=== PATIENT | male | born 1945 | race Caucasian/White ===

== ENCOUNTER 2017-11-21 17:42 | Emergency (ER) | payer MEDICARE, OTHER ==
[2017-11-21] MEDS ORDERED: Albuterol/Ipratropium 3.0-0.5 MG/3 ML Neb Soln NEB ONE (17:50)
[2017-11-21] MEDS ORDERED: cefTRIAXone 2 GM in Sodium Chloride 0.9% 100 ML IV ONE (17:50)
[2017-11-21] MEDS ORDERED: Ondansetron 4 MG/2 ML SDV IVPUSH ONE (17:55)
[2017-11-21] MEDS ORDERED: Sodium Chloride 0.9% 1,000 ML IV SCH (18:00)
[2017-11-21] MEDS ORDERED: SODIUM CHLORIDE 0.9% IV ONE (18:23)
[2017-11-21] MEDS ORDERED: Potassium Chloride 10 MEQ in Premix Bag 1 BAG IV SCH (18:30)
--- NOTE | 2017-11-21 19:00 | EDM.PDOC ---
ED HPI GENERAL MEDICAL PROBLEM - General Chief Complaint: Abdominal Pain Stated Complaint: [facility] Time Seen by Provider: 11/21/17 17:47 Source of Information: Reports: Patient, EMS, Family History Limitations: Reports: No Limitations - History of Present Illness INITIAL COMMENTS - FREE TEXT/NARRATIVE: The patient presents by [facility] for shortness of breath, cough and fever. He has a history of pancreatic cancer for over 2 years. He is on chemo and his last chemo was last Wednesday. He started having the cough, fever and shortness of breath a few days ago. EMS said his oxygen saturations were 80% on room air. He has no lung disease like COPD and asthma. He has been nauseated and vomited last night. He has a drain in his abdomen to drain off the ascities and his drained about 1900mls yesterday. He has no chest pain , abdominal pain, or tingling. He does have generalized weakness and fatigue. Onset: Gradual Duration: Day(s): Severity: Moderate Improves with: Reports: None Worsens with: Reports: None Associated Symptoms: Reports: Cough, Fever/Chills, Nausea/Vomiting. Denies: Chest Pain, Headaches, Shortness of Breath - Related Data Allergies Allergy/AdvReac Type Severity Reaction Status Date / Time codeine Allergy Itching Verified 02/28/16 08:49 diphtheria, pertussis, Allergy Shortness Verified 02/28/16 08:49 tetanus vacc of Breath meperidine Allergy Cannot Verified 02/28/16 08:49 Remember Penicillins Allergy Itching Verified 02/28/16 08:49 phentermine Allergy Cannot Verified 02/28/16 08:49 Remember zolpidem tartrate Allergy Difficulty Verified 02/28/16 08:49 [From Ambien] Swallowing indomethacin AdvReac Diaphoresis Verified 02/28/16 08:49 Sulfa (Sulfonamide AdvReac Cough Verified 02/28/16 08:49 Antibiotics) Home Meds: Home Meds Allopurinol [Zyloprim] 100 mg PO DAILY 02/28/16 [History] Calcium Carbonate/Vitamin D3 [Calcium 600 + Vit D Tablet] 1 each PO BID [History] Lisinopril [Zestril] 5 mg PO DAILY 02/28/16 [History] Acetaminophen/oxyCODONE [Percocet 325-5 MG] 1 tab PO Q6H PRN 11/21/17 [History] Amylase/Lipase/Protease [Creon DR 24,000 Unit] 36,000 unit PO TID 11/21/17 [ History] Docusate Sodium [Colace] 100 mg PO DAILY PRN 11/21/17 [History] Megestrol [Megace 40 MG/ML Susp] 400 mg PO TID 11/21/17 [History] Ondansetron [Zofran ODT] 4 mg PO Q4H PRN 11/21/17 [History] Past Medical History Other HEENT History: glasses, hearing aids not at hospital, partial upper Cardiovascular History: Reports: High Cholesterol, Hypertension Other Cardiovascular History: chronic ischemic heart disease, tortuous aorta Other Respiratory History: Snores Gastrointestinal History: Reports: GERD Other Neuro History: Hx of cervical vertebral fracture, treated conservatively [ collar] in 1975, Endocrine/Metabolic History: Reports: Diabetes, Type II Other Endocrine/Metabolic History: checks blood sugar once daily and taken Metformin BID with meals Oncologic (Cancer) History: Reports: Pancreatic - Infectious Disease History Infectious Disease History: Reports: Chicken Pox, Measles - Past Surgical History Other HEENT Surgeries/Procedures: T&A 1966 and 1994 GI Surgical History: Reports: Cholecystectomy Other GI Surgeries/Procedures: Whipple, stent in liver. pt has a drain to the left abdomen and reports that this is for the pancreas to drain. Surgical scar to mid abdomen is healing well without signs or symptoms of infection Musculoskeletal Surgical History: Reports: Hip Replacement Social & Family History - Tobacco Use Smoking Status *Q: Former Smoker Used Tobacco, but Quit: Yes Month/Year Tobacco Last Used: 1995 - Caffeine Use Caffeine Use: Reports: Coffee, Soda, Tea - Recreational Drug Use Recreational Drug Use: No - Living Situation & Occupation Living situation: Reports: , with Spouse ED ROS GENERAL - Review of Systems Review Of Systems: See Below Constitutional: Reports: Fever, Chills HEENT: Reports: No Symptoms Respiratory: Reports: Shortness of Breath, Cough Cardiovascular: Reports: No Symptoms Endocrine: Reports: No Symptoms GI/Abdominal: Reports: Nausea, Vomiting. Denies: Abdominal Pain : Reports: No Symptoms Musculoskeletal: Reports: No Symptoms ED EXAM, GI/ABD - Physical Exam Exam: See Below Exam Limited By: No Limitations General Appearance: Alert, Moderate Distress Ears: Normal External Exam Nose: Normal Inspection Head: Atraumatic, Normocephalic Neck: Normal Inspection Respiratory/Chest: Respiratory Distress (moderate), Decreased Breath Sounds, Rhonchi (Right lower lung) Cardiovascular: No Edema, No Murmur, Tachycardia GI/Abdominal Exam: Soft, Non-Tender, No Organomegaly, No Mass Extremities: Normal Inspection Neurological: Alert, Oriented, No Motor/Sensory Deficits Course - Vital Signs Last Recorded V/S: Last Vital Signs Temp 98.9 F 11/21/17 20:02 Pulse 118 H 11/21/17 20:02 Resp 26 H 11/21/17 20:02 BP 89/58 L 11/21/17 20:02 Pulse Ox 80 L 11/21/17 17:52 - Orders/Labs/Meds Orders: Active Orders 24 hr Category Date Time Status Cardiac Monitoring [RC] . DIRECTED Care 11/21/17 17:48 Active Implanted Port Access [RC] CONTINUOUS Care 11/21/17 17:54 Active Oxygen Therapy [RC] PRN Care 11/21/17 17:48 Active RT Aerosol Therapy [RC] ASDIRECTED Care 11/21/17 17:50 Active Chest 1V Frontal [CR] Stat Exams 11/21/17 17:49 Taken ABG [BLOOD GAS ARTERIAL] [BG] Stat Lab 11/21/17 20:04 Ordered CULTURE BLOOD [BC] Stat Lab 11/21/17 18:38 Received RED BLOOD CELLS LP [BBK] Stat Lab 11/21/17 17:56 Results TYPE AND SCREEN [BBK] Stat Lab 11/21/17 17:56 Results UA W/MICROSCOPIC [URIN] Stat Lab 11/21/17 17:48 Ordered Levofloxacin/Dextrose 5%-Water [Levaquin in D5W 750 MG/ Med 11/21/17 20:00 Active 150 ML] 750 mg Premix Bag 1 bag IV ONETIME Meropenem [Merrem] 1 gm Med 11/21/17 20:00 Active Sodium Chloride 0.9% [Normal Saline] 100 ml IV ONETIME Norepinephrine [Levophed] 4 mg Med 11/21/17 20:00 Active Dextrose 5% in Water 246 ml IV TITRATE Sodium Chloride 0.9% [Normal Saline] 1,000 ml Med 11/21/17 18:00 Active IV .BOLUS Vancomycin [Vancocin] 1.5 gm Med 11/21/17 20:01 Active Sodium Chloride 0.9% [Normal Saline] 250 ml IV ONETIME BiPAP [RESPCARE] Routine Oth 11/21/17 19:12 Active Blood Culture x2 Reflex Set [OM.PC] Stat Oth 11/21/17 17:49 Ordered Transfuse PRBC [Transfuse Red Blood Cells] [COMM] Stat Ot 11/21/17 18:21 Ordered Medication Orders Sodium Chloride (Normal Saline) 1,000 mls @ 1,000 mls/hr IV .BOLUS MICHAEL Last Admin: 11/21/17 18:31 Dose: 1,000 mls/hr Levofloxacin/Dextrose 750 mg/ (Premix) 150 mls @ 100 mls/hr IV ONETIME ONE Stop: 11/21/17 21:29 Meropenem 1 gm/ Sodium (Chloride) 100 mls @ 200 mls/hr IV ONETIME ONE Stop: 11/21/17 20:29 Norepinephrine Bitartrate 4 mg (/ Dextrose/Water) 250 mls @ 7.5 mls/hr IV TITRATE MICHAEL; Protocol Vancomycin HCl 1.5 gm/ Sodium (Chloride) 250 mls @ 250 mls/hr IV ONETIME ONE Stop: 11/21/17 21:00 Labs: Laboratory Tests 11/21/17 11/21/17 11/21/17 Range/Units 17:42 17:56 17:56 WBC 0.65 L* (4.23-9.07) K/mm3 RBC 2.85 L (4.63-6.08) M/mm3 Hgb 7.3 L* (13.7-17.5) gm/L Hct 22.4 L (40.1-51.0) % MCV 78.6 L (79.0-92.2) fl MCH 25.6 L (25.7-32.2) pg MCHC 32.6 (32.2-35.5) g/dl RDW Std Deviation 53.8 H (35.1-43.9) fL Plt Count 170 (163-337) K/mm3 MPV 11.7 (9.4-12.3) fl Neut % (Auto) 77.0 H (34.0-67.9) % Lymph % (Auto) 16.9 L (21.8-53.1) % [place] % (Auto) 4.6 L (5.3-12.2) % Eos % (Auto) 1.5 (0.8-7.0) Baso % (Auto) 0.0 L (0.1-1.2) % Neut # (Auto) 0.50 L (1.78-5.38) K/mm3 Lymph # (Auto) 0.11 L (1.32-3.57) K/mm3 [place] # (Auto) 0.03 L (0.30-0.82) K/mm3 Eos # (Auto) 0.01 L (0.04-0.54) K/mm3 Baso # (Auto) 0.00 L (0.01-0.08) K/mm3 Manual Slide Review Abnormal smear Sodium 139 (136-145) mEq/L Potassium 4.6 (3.5-5.1) mEq/L Chloride 100 (98-107) mEq/L Carbon Dioxide 20 L (21-32) mEq/L Anion Gap 23.6 H (5-15) BUN 60 H (7-18) mg/dL Creatinine 2.8 H (0.7-1.3) mg/dL Est Cr Clr Drug Dosing 20.65 mL/min Estimated GFR (MDRD) 22 (>60) mL/min BUN/Creatinine Ratio 21.4 H (14-18) Glucose 130 H (83-115) mg/dL POC Glucose 155 H (83-110) mg/dL Lactic Acid (0.4-2.0) mmol/L Calcium 7.5 L (8.5-10.1) mg/dL Total Bilirubin 0.7 (0.2-1.0) mg/dL AST 21 (15-37) U/L ALT < 6 L (16-63) U/L Alkaline Phosphatase 93 (46-116) U/L C-Reactive Protein 33.5 H* (<1.0) mg/dL Total Protein 5.1 L (6.4-8.2) g/dl Albumin 1.4 L (3.4-5.0) g/dl Globulin 3.7 gm/dL Albumin/Globulin Ratio 0.4 L (1-2) Blood Type Gel Antibody Screen Crossmatch 11/21/17 11/21/17 Range/Units 17:56 17:56 WBC (4.23-9.07) K/mm3 RBC (4.63-6.08) M/mm3 Hgb (13.7-17.5) gm/L Hct (40.1-51.0) % MCV (79.0-92.2) fl MCH (25.7-32.2) pg MCHC (32.2-35.5) g/dl RDW Std Deviation (35.1-43.9) fL Plt Count (163-337) K/mm3 MPV (9.4-12.3) fl Neut % (Auto) (34.0-67.9) % Lymph % (Auto) (21.8-53.1) % [place] % (Auto) (5.3-12.2) % Eos % (Auto) (0.8-7.0) Baso % (Auto) (0.1-1.2) % Neut # (Auto) (1.78-5.38) K/mm3 Lymph # (Auto) (1.32-3.57) K/mm3 [place] # (Auto) (0.30-0.82) K/mm3 Eos # (Auto) (0.04-0.54) K/mm3 Baso # (Auto) (0.01-0.08) K/mm3 Manual Slide Review Sodium (136-145) mEq/L Potassium (3.5-5.1) mEq/L Chloride (98-107) mEq/L Carbon Dioxide (21-32) mEq/L Anion Gap (5-15) BUN (7-18) mg/dL Creatinine (0.7-1.3) mg/dL Est Cr Clr Drug Dosing mL/min Estimated GFR (MDRD) (>60) mL/min BUN/Creatinine Ratio (14-18) Glucose (83-115) mg/dL POC Glucose (83-110) mg/dL Lactic Acid 10.9 H (0.4-2.0) mmol/L Calcium (8.5-10.1) mg/dL Total Bilirubin (0.2-1.0) mg/dL AST (15-37) U/L ALT (16-63) U/L Alkaline Phosphatase (46-116) U/L C-Reactive Protein (<1.0) mg/dL Total Protein (6.4-8.2) g/dl Albumin (3.4-5.0) g/dl Globulin gm/dL Albumin/Globulin Ratio (1-2) Blood Type A POSITIVE Gel Antibody Screen Negative Crossmatch See Detail Meds: Medications Generic Name Dose Route Start Last Admin Trade Name Sylvia PRN Reason Stop Dose Admin Sodium Chloride 1,000 mls @ 1,000 mls/hr 11/21/17 18:00 11/21/17 18:31 Normal Saline IV 1,000 mls/hr .BOLUS MICHAEL Administration Levofloxacin/Dextrose 750 mg/ 150 mls @ 100 mls/hr 11/21/17 20:00 Premix IV 11/21/17 21:29 ONETIME ONE Meropenem 1 gm/ Sodium 100 mls @ 200 mls/hr 11/21/17 20:00 Chloride IV 11/21/17 20:29 ONETIME ONE Norepinephrine Bitartrate 4 mg 250 mls @ 7.5 mls/hr 11/21/17 20:00 / Dextrose/Water IV TITRATE MICHAEL Protocol 2 MCG/MIN Vancomycin HCl 1.5 gm/ Sodium 250 mls @ 250 mls/hr 11/21/17 20:01 Chloride IV 11/21/17 21:00 ONETIME ONE Discontinued Medications Generic Name Dose Route Start Last Admin Trade Name Sylvia PRN Reason Stop Dose Admin Albuterol/Ipratropium 3 ml 11/21/17 17:50 11/21/17 18:19 Duoneb 3.0-0.5 Mg/3 Ml NEB 11/21/17 17:51 3 ml ONETIME ONE Administration Ceftriaxone Sodium 2 gm/ 100 mls @ 100 mls/hr 11/21/17 17:50 11/21/17 18:41 Sodium Chloride IV 11/21/17 18:49 100 mls/hr ONETIME ONE Administration Sodium Chloride 837 mls @ 1,000 mls/hr 11/21/17 18:23 11/21/17 19:10 Normal Saline IV 11/21/17 19:13 1,000 mls/hr ONETIME ONE Administration Potassium Chloride 10 meq/ 100 mls @ 100 mls/hr 11/21/17 18:30 11/21/17 18:34 Premix IV 11/21/17 22:29 100 mls/hr Q1H MICHAEL Administration Albumin Human 12.5 gm in 50 mls @ 100 mls/hr 11/21/17 19:11 08/12/18 19:35 Flexbumin 25% IV 11/21/17 19:40 100 mls/hr ONETIME ONE Administration Sodium Chloride Confirm 11/21/17 19:43 Normal Saline Administered 11/21/17 19:44 Dose 1,000 mls @ as directed .ROUTE .STK-MED ONE Metoclopramide HCl 10 mg 11/21/17 20:04 Reglan IVPUSH 11/21/17 20:05 ONETIME ONE Ondansetron HCl 4 mg 11/21/17 17:55 11/21/17 18:30 Zofran IVPUSH 11/21/17 17:56 4 mg ONETIME ONE Administration - Re-Assessments/Exams Free Text/Narrative Re-Assessment/Exam: 11/21/17 19:09 I ordered oxygen, duoneb, port access with 1 L bolus, blood cultures, labs, and CXR. His CXR shows an infiltrate in the RML. 11/21/17 20:06 His WBC was low at 0.65. His Hgb was low at 7.3. I ordered 2 units of PRBCs. His paltelets are normal. His creatinine is elevated at 2.8. His BUN was elevated at 60. His lactic acid was very elevated at 10.9. He is septic from the pneumonia. I ordered more NS for a total of 30mls/kg. His glucose was 130. His CRP was elevated at 33.5. His albumen was low at 1.4. I ordered some albumen. I am concerned about the patient's airway. I feel he needs to be intubated. He does not want to be intubated or resuscitated. I feel he does need to be admitted. I called our hospitalist and she was not comfortable admitted him here. I did start some Bipap to help him breath. 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 I will also continue the fluid. He will be going by ambulance. Departure - Departure Time of Disposition: 20:20 Disposition: DC/Tfer to Acute Hospital 02 Condition: Serious Clinical Impression: Hypoxia, Hypoalbuminemia Pneumonia Qualifiers: Pneumonia type: due to unspecified organism Laterality: right Lung location: middle lobe of lung Qualified Code(s): J18.1 - Lobar pneumonia, unspecified organism Sepsis Qualifiers: Sepsis type: sepsis due to unspecified organism Qualified Code(s): A41.9 - Sepsis, unspecified organism Renal failure Qualifiers: Renal failure chronicity: acute Acute renal failure type: unspecified Qualified Code(s): N17.9 - Acute kidney failure, unspecified Pancreatic cancer Qualifiers: Pancreatic malignancy location: unspecified Qualified Code(s): C25.9 - Malignant neoplasm of pancreas, unspecified Hypotension Qualifiers: Hypotension type: unspecified hypotension type Qualified Code(s): I95.9 - Hypotension, unspecified - Discharge Information Referrals: Felipe Hunter MD [Primary Care Provider] - Forms: ED Department Discharge - My Orders Last 24 Hours: My Active Orders 11/21/17 17:48 Cardiac Monitoring [RC] . DIRECTED Oxygen Therapy [RC] PRN UA W/MICROSCOPIC [URIN] Stat 11/21/17 17:49 Chest 1V Frontal [CR] Stat Blood Culture x2 Reflex Set [OM.PC] Stat 11/21/17 17:50 RT Aerosol Therapy [RC] ASDIRECTED 11/21/17 17:54 Implanted Port Access [RC] CONTINUOUS 11/21/17 17:56 RED BLOOD CELLS LP [BBK] Stat TYPE AND SCREEN [BBK] Stat 11/21/17 18:00 Sodium Chloride 0.9% [Normal Saline] 1,000 ml IV .BOLUS 11/21/17 18:21 Transfuse PRBC [Transfuse Red Blood Cells] [COMM] Stat 11/21/17 18:38 CULTURE BLOOD [BC] Stat 11/21/17 19:12 BiPAP [RESPCARE] Routine 11/21/17 20:00 Levofloxacin/Dextrose 5%-Water [Levaquin in D5W 750 MG/150 ML] 750 mg Premix Bag 1 bag IV ONETIME Meropenem [Merrem] 1 gm Sodium Chloride 0.9% [Normal Saline] 100 ml IV ONETIME Norepinephrine [Levophed] 4 mg Dextrose 5% in Water 246 ml IV TITRATE 11/21/17 20:01 Vancomycin [Vancocin] 1.5 gm Sodium Chloride 0.9% [Normal Saline] 250 ml IV ONETIME 11/21/17 20:04 ABG [BLOOD GAS ARTERIAL] [BG] Stat - Assessment/Plan Last 24 Hours: My Active Orders 11/21/17 17:48 Cardiac Monitoring [RC] . DIRECTED Oxygen Therapy [RC] PRN UA W/MICROSCOPIC [URIN] Stat 11/21/17 17:49 Chest 1V Frontal [CR] Stat Blood Culture x2 Reflex Set [OM.PC] Stat 11/21/17 17:50 RT Aerosol Therapy [RC] ASDIRECTED 11/21/17 17:54 Implanted Port Access [RC] CONTINUOUS 11/21/17 17:56 RED BLOOD CELLS LP [BBK] Stat TYPE AND SCREEN [BBK] Stat 11/21/17 18:00 Sodium Chloride 0.9% [Normal Saline] 1,000 ml IV .BOLUS 11/21/17 18:21 Transfuse PRBC [Transfuse Red Blood Cells] [COMM] Stat 11/21/17 18:38 CULTURE BLOOD [BC] Stat 11/21/17 19:12 BiPAP [RESPCARE] Routine 11/21/17 20:00 Levofloxacin/Dextrose 5%-Water [Levaquin in D5W 750 MG/150 ML] 750 mg Premix Bag 1 bag IV ONETIME Meropenem [Merrem] 1 gm Sodium Chloride 0.9% [Normal Saline] 100 ml IV ONETIME Norepinephrine [Levophed] 4 mg Dextrose 5% in Water 246 ml IV TITRATE 11/21/17 20:01 Vancomycin [Vancocin] 1.5 gm Sodium Chloride 0.9% [Normal Saline] 250 ml IV ONETIME 11/21/17 20:04 ABG [BLOOD GAS ARTERIAL] [BG] Stat
[2017-11-21] MEDS ORDERED: Albumin 25% 12.5 GM/50 ML BAG IV ONE (19:11)
[2017-11-21] MEDS ORDERED: Sodium Chloride 0.9% 1,000 ML ONE (19:43)
[2017-11-21] MEDS ORDERED: Levofloxacin/Dextrose 5%-Water 750 MG in Premix Bag 1 BAG IV ONE (20:00)
[2017-11-21] MEDS ORDERED: Norepinephrine 4 MG in Dextrose 5% in Water 246 ML IV SCH ×2 (20:00)
[2017-11-21] MEDS ORDERED: Meropenem 1 GM in Sodium Chloride 0.9% 100 ML IV ONE (20:00)
[2017-11-21 20:03] VITALS: BP 89/58
[2017-11-21] MEDS ORDERED: Metoclopramide 10 MG/2 ML SDV IVPUSH ONE (20:04)
--- NOTE | 2017-11-22 10:49 | CR ---
Chest: Portable view of the chest was obtained. Comparison: Prior chest x-ray 02/28/16. Heart size is normal. Tortuous thoracic aorta is seen. Right sided shoulder prosthesis is noted. Right-sided infusion port is seen. Lungs show no acute parenchymal change. Bony structures are grossly intact. Tubing is seen overlying the upper abdomen. Impression: 1. Incidental findings. Nothing acute is appreciated on portable chest x-ray. Diagnostic code #2
== END 2017-11-21 20:58 ==
LOC: JD.ED 17:42 → SUPCPDRO 17:42 → JD.ED 20:58
DX: A41.9 Sepsis, unspecified organism (principal); J18.9 Pneumonia, unspecified organism; R65.20 Severe sepsis without septic shock; N17.9 Acute kidney failure, unspecified; I95.9 Hypotension, unspecified; E88.09 Other disorders of plasma-protein metabolism, not elsewhere classified; R09.02 Hypoxemia; C25.9 Malignant neoplasm of pancreas, unspecified; I10 Essential (primary) hypertension; E11.9 Type 2 diabetes mellitus without complications; D64.9 Anemia, unspecified; D72.819 Decreased white blood cell count, unspecified; Z79.84 Long term (current) use of oral hypoglycemic drugs; Z87.891 Personal history of nicotine dependence; Z88.0 Allergy status to penicillin; Z88.8 Allergy status to other drugs, medicaments and biological substances; Z88.2 Allergy status to sulfonamides; Z79.899 Other long term (current) drug therapy
CPT/HCPCS: 36415; 36430; 36600; 71045; 80053; 82803; 82962; 83605; 85025; 86140; 86850; 86900; 86901; 86922; 87040; 94640; 94660; 96361; 96365; 96367; 96368; 96375; 99285; J0696; J1956; J2185; J2405; J2765; J3480; J7030; J7040; J7060; P9016; P9047; 87077; 87186; J7620-GY